=== PATIENT | male | born 1965 | race Native Hawaiian/Other Pacific Islander ===

== ENCOUNTER 2018-12-30 12:56 | Emergency (ER) | payer OTHER ==
[~2018-12-30] VITALS: Ht 177.8 cm; Wt 79.4 kg
[~2018-12-30 12:56] MED LIST: ASPIRIN 81 LOW81 MG PO
[2018-12-30 13:02] VITALS: TEMP 98.4
[2018-12-30 14:29] LABS: POTASSIUM 4.8 mmol/L (3.6-5.2)
[2018-12-30 14:43] LABS: PLATELET COUNT 138 K/uL (142-355)
[2018-12-30 16:20] VITALS: BP 134/82
== END 2018-12-30 16:25 | disposition home or self-care (01) ==
LOC: ED 12:56
PROVIDERS: Family Medicine
DX: S90.861A Insect bite (nonvenomous), right foot, initial encounter (principal); L03.115 Cellulitis of right lower limb; W57.XXXA Bitten or stung by nonvenomous insect and other nonvenomous arthropods, initial encounter
CPT/HCPCS: 80053; 84550; 85027; 99282; 99283

== ENCOUNTER 2019-01-14 10:06 | Outpatient (CLI) | payer OTHER | END 2019-01-14 19:36 | disposition home or self-care (01) | LOC: RAD 10:06 | DX: R60.0 Localized edema (principal); M79.671 Pain in right foot ==

== ENCOUNTER 2019-05-09 17:14 | Emergency (ER) | payer OTHER ==
[~2019-05-09] VITALS: Ht 177.8 cm; Wt 81.6 kg
[2019-05-09 17:30] VITALS: TEMP 98.6
[2019-05-09 18:00] VITALS: BP 132/82
== END 2019-05-09 18:51 | disposition home or self-care (01) ==
LOC: ED 17:14
DX: K04.7 Periapical abscess without sinus (principal); F17.210 Nicotine dependence, cigarettes, uncomplicated
CPT/HCPCS: 99282

== ENCOUNTER 2019-07-16 13:18 | Emergency (ER) | payer OTHER ==
[~2019-07-16] VITALS: Ht 177.8 cm; Wt 81.6 kg
[2019-07-16 13:30] VITALS: TEMP 97.9
[2019-07-16 14:39] LABS: PLATELET COUNT 122 K/uL (142-355)
[2019-07-16 14:47] LABS: POTASSIUM 3.9 mmol/L (3.6-5.2); SODIUM 139 mmol/L (136-145)
[2019-07-16 15:07] LABS: PARTIAL THROMBOPLASTIN TIME 54.4 SECONDS (24.5-33.6)
[2019-07-16 18:43] VITALS: BP 130/87
== END 2019-07-16 18:43 | disposition home or self-care (01) ==
LOC: ED 13:18
PROVIDERS: Family Medicine
DX: R42 Dizziness and giddiness (principal); T45.511A Poisoning by anticoagulants, accidental (unintentional), initial encounter
CPT/HCPCS: 80053; 82550; 84484; 85027; 85379; 85610; 85730; 93005; 96372; 99283; J3430

== ENCOUNTER 2020-01-28 09:43 | Outpatient (CLI) | payer OTHER | END 2020-01-28 20:33 | disposition home or self-care (01) | LOC: US 09:43 | DX: I82.401 Acute embolism and thrombosis of unspecified deep veins of right lower extremity (principal) ==

== ENCOUNTER 2020-02-14 19:40 | Emergency (ER) | payer OTHER ==
[~2020-02-14] VITALS: Ht 177.8 cm; Wt 81.6 kg
[2020-02-14 19:50] VITALS: TEMP 98.3
[2020-02-14] MEDS ORDERED: COUMADIN6 MG PO (20:25)
[2020-02-14 23:19] VITALS: BP 128/85
== END 2020-02-14 23:19 | disposition home or self-care (01) ==
LOC: ED 19:40
PROC: 2W3RX1Z Immobilization of Left Lower Leg using Splint (ICD-10-PCS; principal; 2020-02-14)
DX: S82.62XA Displaced fracture of lateral malleolus of left fibula, initial encounter for closed fracture (principal); X50.1XXA Overexertion from prolonged static or awkward postures, initial encounter; Y92.89 Other specified places as the place of occurrence of the external cause
CPT/HCPCS: 99283

== ENCOUNTER 2020-12-09 10:38 | Emergency (ER) | payer OTHER ==
[~2020-12-09] VITALS: Ht 177.8 cm; Wt 81.6 kg
[~2020-12-09 10:38] MED LIST changes: +COUMADIN6 MG PO
[2020-12-09 11:21] VITALS: BP 132/78; TEMP 97.9
== END 2020-12-09 11:21 | disposition home or self-care (01) ==
LOC: ED 10:38
PROC: 0HQ3XZZ Repair Left Ear Skin, External Approach (ICD-10-PCS; principal; 2020-12-09)
DX: S00.462A Insect bite (nonvenomous) of left ear, initial encounter (principal); S01.312A Laceration without foreign body of left ear, initial encounter; Z79.01 Long term (current) use of anticoagulants; W57.XXXA Bitten or stung by nonvenomous insect and other nonvenomous arthropods, initial encounter; Y92.89 Other specified places as the place of occurrence of the external cause
CPT/HCPCS: 99282

== ENCOUNTER 2021-12-28 09:38 | Outpatient (CLI) | payer OTHER | END 2021-12-28 19:29 | disposition home or self-care (01) | LOC: RAD 09:38 | PROVIDERS: ATTEND Internal Medicine | DX: Z02.71 Encounter for disability determination (principal); M25.562 Pain in left knee; M25.561 Pain in right knee; M54.50 Low back pain, unspecified; R42 Dizziness and giddiness; R07.9 Chest pain, unspecified ==